=== PATIENT | female | born 1950 | race Caucasian/White ===

== ENCOUNTER 2017-01-01 22:34 | Inpatient (IN) | payer MEDICARE, MEDICAID ==
[~2017-01-01] VITALS: Ht 160 cm; Wt 59.0 kg
--- NOTE | 2017-01-01 22:53 | NUR ---
Pt to xray via gurney. No acute distress note.
[2017-01-01] MEDS ORDERED: BUPR100T13 PO (22:56)
[2017-01-01] MEDS ORDERED: LOSA50TA21 PO (22:56)
[2017-01-01] MEDS ORDERED: HYDR25TA4 PO (22:56)
[2017-01-01] MEDS ORDERED: QUET100T PO (22:56)
[2017-01-01] MEDS ORDERED: PANT40TA4 PO (22:56)
[2017-01-01] MEDS ORDERED: PROP80TA4 PO (22:56)
--- NOTE | 2017-01-01 23:17 | NUR ---
Pt returned from radiology via [place]. Pt has no physical complaints at this time. Pt is tearful and admits to being depressed. Sts at this point she is too tired to act on her plan which was to OD on her medications. Pt denies auditory or visual hallucinations. Pt resting in position of comfort for self.
--- NOTE | 2017-01-02 00:14 | NUR ---
Pt denies any complaints of pain at this time. Pt medically cleared for MHU admission per Dr. Llamas
--- NOTE | 2017-01-02 00:47 | NUR ---
Report given to Abby SHARIF
--- NOTE | 2017-01-02 01:08 | NUR ---
Pt medicated for elevated bp, will monitor for effects of medication. Pt ambulated to and from br with steady gait. No complaints at this time
[2017-01-02 03:44] VITALS: BP 168/95
--- NOTE | 2017-01-02 05:06 | NUR ---
ADMISSION NOTE: 66 YRS OLD WHO LIVES ALONE @ HOME BIB HER BROTHER TO [facility] ER. FOR C/O SI WITH A PLAN THEN WAS PLACED ON 72 HR HOLD FOR DTS.PT WAS TRANSFFERED TO [facility] TO BE ADMITTED TO MHU.PT ARRIVED TO THE UNIT VIA WHEELCHAIR ACCOMPANIED WITH ER STAFF.PT.STATES SHE IS HERE BECAUSE SHE IS SO DEPRESSED. 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
[2017-01-02 07:30] VITALS: BP 124/72
[2017-01-02 15:22] VITALS: BP 149/89
[2017-01-02 20:15] VITALS: BP 156/83
[2017-01-03 07:30] VITALS: BP 157/73
[2017-01-03 07:58] LABS: BILIRUBIN,TOTAL 0.4 mg/dL (0.2-1.0); CREATININE 0.8 mg/dL (0.6-1.3); MAGNESIUM 2.1 mg/dL (1.8-2.4); PHOSPHOROUS 3.5 mg/dL (2.5-4.9); POTASSIUM 4.7 mmol/L (3.5-5.1); TOTAL PROTEIN, SERUM 6.8 g/dL (6.4-8.2)
[2017-01-03 07:59] LABS: THYROID STIMULATING HORMONE 1.799 mIU/mL (0.358-3.740)
[2017-01-03 08:24] LABS: HEMATOCRIT 40.4 % (37-47); HEMOGLOBIN 13.7 G/DL (12.0-16.0); MEAN CORPUSCULAR VOLUME 92.9 FL (81.0-99.0); RED BLOOD CELL COUNT(AUTO) 4.35 MIL/UL (4.2-5.4); WHITE BLOOD COUNT (AUTO) 5.6 K/UL (4.0-11.2)
[2017-01-03 08:25] LABS: MEAN CORPUSCULAR HEMOGLOBIN 31.6 UUG (27.0-31.0); MEAN CORPUSCULAR HGB CONC 34 g/dL (32.0-37.0)
[2017-01-03 08:26] LABS: PLATELET COUNT (AUTO) 187 K/UL (150-450)
[2017-01-03 08:29] LABS: BASOPHILS % (AUTO) 1.2 % (0.0-2.0); EOSINOPHILS % (AUTO) 3.9 % (0.0-7.0); LYMPHOCYTES % (AUTO) 28.6 % (20.5-51.5); MONOCYTES % (AUTO) 9.5 % (0.0-11.0); NEUTROPHILS % (AUTO) 56.8 % (38.5-71.5)
[2017-01-03 16:55] VITALS: BP 146/77
[2017-01-03 20:05] VITALS: BP 161/82
[2017-01-04 00:46] VITALS: BP 125/58
[2017-01-04 07:55] VITALS: BP 136/66
--- NOTE | 2017-01-04 11:33 | NUR ---
Initial DC Plan: Patient currently resides home alone [[address] [place] [address]] and would like to return there upon discharge. NEMESIO left a voicemail for brother Clifford [[phone]] to discuss discharge plans. NEMESIO will follow up with MD, patient, and patient's family to form appropriate discharge plans. NEMESIO will form a safe and proper discharge plan.
[2017-01-04 16:22] VITALS: BP 134/89
--- NOTE | 2017-01-04 19:30 | NUR ---
received patient sitting comfortably in bed. no acute distress noted. safety initiated. will continue to monitor.
[2017-01-04 20:17] VITALS: BP 146/79
--- NOTE | 2017-01-05 06:23 | NUR ---
PATIENT SLEPT T/O SHIFT. NO ACUTE DISTRESS NOTED. NO SI. HOURS OF SLEEP = 7.5. NO BEHAVIORAL PROBLEMS. PATIENT REMAINS COOPERATIVE. ALL NEEDS MET. ALL MEDS GIVEN ORDERED.
[2017-01-05 07:30] VITALS: BP 127/57
--- NOTE | 2017-01-05 09:00 | NUR ---
ALERT ORIENTED AND COOPERATIVE COOPERATIVE AND COMPLIANT WITH MEDICATIONS UP AND AMBULATORY TO DESIRED DESTINATIONS IN THE UNIT USUALLY VERY QUIET BUT ATTENDS ACTIVITIES SITS IN THE TV ROOM WITH THE OTHER PATIENTS
[2017-01-05 16:00] VITALS: BP 120/57
--- NOTE | 2017-01-05 18:00 | NUR ---
REMAIN COOPERATIVE AND COMPLIANT WITH MEDICATIONS AND CARE NO COMPLAINTS AT THIS TIME
[2017-01-05 20:44] VITALS: BP 145/71
--- NOTE | 2017-01-05 23:01 | NUR ---
PATIENT RECEIVED IN BED AWAKE. PATIENT COMPLAINT WITH MEDICATION. PATIENT IS EASILY AGITATED HOWEVER IS REDRECTABLE. PATIENT DENIES SI/AH/VH, WILL CONTINUE TO MONITOR. ENCOURAGED PATIENT TO EXPRESS FEELINGS AND CONCERNS. PATIENT ALSO ENCOURAGED TO ATTEND GROUP ACTIVITIES.BED IN LOWEST POSITION, BED LOCKED.
[2017-01-06 07:30] VITALS: BP 129/64
--- NOTE | 2017-01-06 11:00 | NUR ---
ALERT ORIENTED COMPLIANT WITH MEDICATIONS AND CARE.
[2017-01-06 15:00] VITALS: BP 140/76
--- NOTE | 2017-01-06 18:00 | NUR ---
COOPERATIVE ALERT AND ORIENTED STATED THAT SHE IS HOPING THAT THE DOCTOR WILL LET HER OUT SOON STATED SHE FELLS BETTER NOW.
[2017-01-06 20:39] VITALS: BP 152/75
[2017-01-07 07:30] VITALS: BP 115/68
[2017-01-07 15:36] VITALS: BP_SYST 136; BP_SYST 156; BP_DIAS 81
[2017-01-07 20:53] VITALS: BP 162/85
[2017-01-08 15:00] VITALS: BP 145/71
[2017-01-08 20:00] VITALS: BP 142/80
--- NOTE | 2017-01-08 21:45 | NUR ---
PT RECEIVED LAYING IN BED RESTING COMFORTABLY AT THIS TIME. NO ACUTE DISTRESS NOTED. WILL CONTINUE TO MONITOR FOR SAFETY.
[2017-01-09 07:52] VITALS: BP 113/51
[2017-01-09 16:46] VITALS: BP 128/72
[2017-01-09 20:21] VITALS: BP 137/62
[2017-01-10 07:30] VITALS: BP 127/52
[2017-01-10 08:11] VITALS: BP 127/52
--- NOTE | 2017-01-10 12:33 | NUR ---
DC Plan: Patient will be discharged [facility] [[address] [facility] [place] [address]; [phone]] via private transport. SW spoke with patient's brother Clifford Larois [[phone]] who agreed to cook pickled meat patient and stated he will pick her up at 2pm. Patient's brother is aware and agreeable to discharge plans. Patient is alert and oriented x4. Patient is aware and agreeable to discharge plans, and denies current SI. Patient stated she will follow up with her regular psychiatrist Dr. Pineda [[phone]]. Patient was also provided a list of referrals for outpatient psychiatrists including Dr. Hemphill [[phone]], Dr. Castrejon [[phone]], and Dr. Benites [[phone]]. Patient was provided with additional outpatient mental health resources to [facility] , Misty Ferreira , and the National Suicide Prevention Lifeline .
--- NOTE | 2017-01-10 13:00 | NUR ---
DISCHARGE PLANNING PATIENTS BROTHER KEVIN WILL PICK HER UP ABOUT 1500 TODAY
--- NOTE | 2017-01-10 13:59 | NUR ---
Called in medical prescriptions for pt's pharmacy of choice: [facility] [address] [facility] [address], . Spoke to Jesus Pena.
--- NOTE | 2017-01-10 14:50 | NUR ---
PATIENT DISCHARGED PICKED UP BY HER BROTHER SANDRA WITH DISCHARGE INSTRUCTIONS AND PRESCRIPTIONS .PATIENT WAS INSTRUCTED TO CALL 911 FOR HELP AND ALSO SHE WAS PROVIDED ALL THE HOT AND HELP LINES FOR SUICIDE AND SHE EXPRESSED UNDERSTANDING.ALL HER PERSONAL BELONGINGS INCLUDING HER MEDICATIONS VALUABLES FROM THE [facility] WAS RETURNED TO HER AND SHE SIGNED FOR THEM.TAKEN OUT BY W/CHAIR.IN SATISFACTORY CONDITION.
== END 2017-01-10 14:50 | disposition home or self-care (01) | DRG 885 ==
LOC: ER 22:34 → GPS 01-02 00:57
PROVIDERS: ADMIT Psychiatry & Neurology Psychiatry; ATTEND Internal Medicine
DX: F33.9 Major depressive disorder, recurrent, unspecified (principal); I10 Essential (primary) hypertension; E78.5 Hyperlipidemia, unspecified; Z91.5 Personal history of self-harm; K21.9 Gastro-esophageal reflux disease without esophagitis; Z87.81 Personal history of (healed) traumatic fracture; Z87.891 Personal history of nicotine dependence; G25.0 Essential tremor; G47.9 Sleep disorder, unspecified; Z79.899 Other long term (current) drug therapy; F41.9 Anxiety disorder, unspecified
CPT/HCPCS: 36415; 70450; 71010; 83735; 84100; 84443; 85025; 93005; A4663